=== PATIENT | male | born 1940 | race Caucasian/White ===

== ENCOUNTER 2016-11-28 16:26 | Inpatient (IN) | payer MEDICARE ==
[2016-11-28 17:36] LABS: Hematocrit 42 % (42-52); Hemoglobin 13.9 g/dl (14.0-18.0); Mean Corpuscular HGB Conc 33 g/dl (31-36); Mean Corpuscular Hemoglobin 32 pg (27-31); Mean Corpuscular Volume 98 fL (80-94); Mean Platelet Volume 8 um3 (7.4-10.4); Red Blood Count 4.33 10^6/ul (4.0-5.4); Red Cell Distribution Width 15 % (10.5-15); White Blood Count 10.6 10^3/ul (3.5-10.8)
[2016-11-28 17:50] LABS: Ammonia 37 mol/L (16-53)
[2016-11-28 17:52] LABS: ALT 15 U/L (7-52); AST 24 U/L (13-39); Albumin 3.9 g/dL (3.2-5.2); Alkaline Phosphatase 81 U/L (34-104); Anion Gap 5 mmol/L (2-11); BUN/Creatinine Ratio 26.9 (8-20); Blood Urea Nitrogen 25 mg/dL (6-24); C Reactive Protein 17.56 mg/L (< 5.00); CO2 Carbon Dioxide 27 mmol/L (22-32); Calcium 9.9 mg/dL (8.6-10.3); Chloride 105 mmol/L (101-111); Creatine Kinase 202 U/L (10-223); EGFR African American 101.9 (>60); EGFR Non-African American 79.2 (>60); Globulin 3.9 g/dL (2-4); Glucose 111 mg/dL (70-100); Lipase 26 U/L (11.0-82.0); Magnesium 2.1 mg/dL (1.9-2.7); Potassium 4.6 mmol/L (3.5-5.0); Sodium 137 mmol/L (133-145); Total Protein 7.8 g/dL (6.4-8.9)
[2016-11-28 17:55] LABS: B Type Natriuretic Peptide 606 pg/mL
[2016-11-28 17:57] LABS: Troponin I 0.45 ng/mL (<0.04)
[2016-11-28] MEDS ORDERED: Aspirin Low Dose CHEW TAB* 81 MG PO ONE (17:59)
[2016-11-28] MEDS ORDERED: LORazepam INJ* 2 MG/ML 1 ML VIAL IV ONE (17:59)
[2016-11-28] MEDS ORDERED: NS 0.9% 1000 ML* 1,000 ML IV SCH (18:00)
[2016-11-28 18:18] LABS: Urine Bacteria Absent (Absent); Urine Bilirubin Negative (Negative); Urine Glucose Negative (Negative); Urine Nitrite Negative (Negative)
[2016-11-28 18:27] LABS: Acetaminophen < 15 mcg/mL; Alcohol < 10 mg/dL (<10)
[2016-11-28 18:32] LABS: Benzodiazepine Urine Screen None Detected (None Detect)
[2016-11-28 18:38] LABS: TSH (Thyroid Stimulating Horm) 5.02 mcIU/mL (0.34-5.60)
[2016-11-28] MEDS ORDERED: Iohexol 350* (CONTRAST) 500 ML MDV IV ONE (19:20)
[2016-11-28] MEDS ORDERED: Ondansetron INJ* 2 MG/ML VIAL IV PRN (19:48)
[2016-11-28] MEDS ORDERED: Acetaminophen TAB* 325 MG PO PRN (19:48)
--- NOTE | 2016-11-28 20:25 | RAD ---
INDICATION: Altered mental status COMPARISON: None. TECHNIQUE: Contiguous axial sections of the brain were obtained from the skull base to the vertex without contrast. FINDINGS: The ventricles, cisterns and sulci are within normal limits. The richmond-white matter differentiation is adequately maintained and there is no sulcal effacement. No significant focal abnormality or mass effect is present. There is no evidence for intracranial hemorrhage. No significant focal osseous abnormality is present. The visualized portion of the paranasal sinuses and mastoid air cells appear clear. IMPRESSION: Normal CT of the brain.
--- NOTE | 2016-11-28 20:37 | RAD ---
INDICATION: Elevated troponin and d-dimer in a patient exhibiting altered mental status COMPARISON: None TECHNIQUE: Axial source images were acquired following the administration of 61 mL on the patent [address] angiographic technique. Coronal and sagittal reconstructed images were constructed and reviewed. FINDINGS: There there are no filling defects in the pulmonary arteries to indicate acute pulmonary embolic disease. Lateral aspect of the right lower lobe there is a partially calcified 5 mm nodule most consistent with a benign granuloma. The lungs exhibit diffuse centrilobular emphysematous changes and hyperinflation. There are scattered foci of pleural-based density not exceeding a centimeter in greatest dimension. The heart is normal in size. There is no evidence of pericardial effusion. There is no evidence of aortic aneurysm or dissection. The right mainstem pulmonary artery measures 3 cm in diameter, a top normal dimension that can be seen in the setting of pulmonary hypertension. There is no mediastinal, hilar, or axillary lymphadenopathy. Multilevel degenerative change of the thoracic spine includes loss of intervertebral disc height. There is an age indeterminant compression deformity of the T8 vertebral body. Plate and screw fixator is partially visualized overlying the C6 vertebral body. Limited views of the upper abdomen show no acute abnormalities. There is a subcentimeter fluid density cyst in the left lobe of the liver. The aorta exhibits calcified atherosclerosis. IMPRESSION: 1. No CT of evidence of pulmonary embolism. 2. Imaging findings are consistent with emphysema. 3. There is an age indeterminant compression deformity of the T8 vertebral body. 4. Additional chronic, degenerative and iatrogenic findings described in the body the report.
[2016-11-28] MEDS ORDERED: Nicotine Patch Removal NOTE FOLLOW UP SCH (21:00)
[2016-11-28] MEDS ORDERED: clonazePAM TAB(*) 0.5 MG PO SCH (21:00)
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
[2016-11-28 21:18] LABS: Erythrocyte Sed Rate 49 mm/Hr (0-40)
[2016-11-28] MEDS: Heparin VIAL(*) 5000 UNITS/ML VIAL (FIVE THOUSAND) SUBCUT SCH (22:15)
[2016-11-28] MEDS: QUEtiapine TAB* 25 MG PO SCH (22:15)
[2016-11-28] MEDS: ceFAZolin 2 GM PREMIX(*) 2 GM/50 ML BAG IVPB SCH (22:17)
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
[2016-11-29 05:05] LABS: Hematocrit 35 % (42-52); Hemoglobin 11.4 g/dl (14.0-18.0); Mean Corpuscular HGB Conc 33 g/dl (31-36); Mean Corpuscular Hemoglobin 32 pg (27-31); Mean Corpuscular Volume 97 fL (80-94); Mean Platelet Volume 8 um3 (7.4-10.4); Red Cell Distribution Width 15 % (10.5-15); White Blood Count 8.7 10^3/ul (3.5-10.8)
[2016-11-29 05:16] LABS: BUN/Creatinine Ratio 31.6 (8-20); Calcium 8.6 mg/dL (8.6-10.3); EGFR African American 128.6 (>60); Potassium 4.1 mmol/L (3.5-5.0)
[2016-11-29] MEDS: Heparin VIAL(*) 5000 UNITS/ML VIAL (FIVE THOUSAND) SUBCUT SCH ×3 (06:17→22:31)
[2016-11-29] MEDS: ceFAZolin 2 GM PREMIX(*) 2 GM/50 ML BAG IVPB SCH ×2 (06:17→13:53)
[2016-11-29] MEDS ORDERED: Nicotine PATCH 21 MG/24 HR* PATCH TRANSDERM SCH (08:00)
[2016-11-29] MEDS: Donepezil TAB* 5 MG PO SCH (08:32)
[2016-11-29] MEDS: Sertraline* 100 MG TAB PO SCH (08:32)
[2016-11-29] MEDS: Aspirin Low Dose CHEW TAB* 81 MG PO SCH (08:32)
--- NOTE | 2016-11-29 10:12 | ECHO ---
Patient: JUSTINE OLVERA [facility] Rec#: [id number] : 1940 Date: 11/29/2016 Age: 76y Height: 187.96 cm / 74.0 in Weight: 64.41 kg / 142.0 lbs Sex: M BSA: 1.88 Room#: 438 Admit Date#: 11/28/2016 Type: Inpatient Referring: Tien Ho NP Reading: Barbie Damon MD Monitor Technician: Janneth Newton RD Transthoracic Echocardiogram Indication: Abnormal EKG, AMS BP: 121/63 HR: 56 Rhythm: Bradycardia Indications Abnormal Electrocardiogram Findings History: Bladder cancer, smoker, anxiety/depression. Technical Comments: The study quality is fair. The study is technically limited due to patient body habitus. Completed at 0845. Left Ventricle: The left ventricular chamber size is normal. Mild concentric left ventricular hypertrophy is observed. There is a prominent septal knuckle. There is normal left ventricular systolic function. The estimated ejection fraction is 55-60%. There is a left ventricular septal wall motion abnormality observed, possibly due to the presence of a right bundle branch block. There is no consistent Doppler evidence of clinically significant diastolic dysfunction. Left Atrium: The left atrium is moderately dilated. Right Ventricle: The right ventricle is mildly dilated. The right ventricular global systolic function is normal. Right Atrium: The right atrium is moderate to severely dilated. A prominent chiari network is noted in the right atrium. Aortic Valve: The aortic valve is trileaflet. The aortic valve leaflets are mildly thickened. There is a trace of aortic regurgitation. There is no evidence of aortic stenosis. Mitral Valve: The mitral valve leaflets are mildly thickened. There is mild mitral regurgitation. There is no evidence of mitral stenosis. Tricuspid Valve: The tricuspid valve leaflets are normal. There is moderate tricuspid regurgitation. The right ventricular systolic pressure is estimated at 46 mmHg. There is evidence of moderate pulmonary hypertension. There is no tricuspid stenosis. Pulmonic Valve: The pulmonic valve appears thickened with good excursion. There is a trace pulmonic regurgitation. There is no pulmonic stenosis. Pericardium: There is no significant pericardial effusion. Aorta: The ascending aorta is not well visualized. The aortic arch is not well visualized. There is mild dilatation of the aortic root. Pulmonary Artery: The main pulmonary artery appears normal. Venous: The inferior vena cava is dilated. There is a greater than 50% respiratory change in the inferior vena cava dimension. Summary: There was not any prior study for comparison. Conclusions The left ventricular chamber size is normal. Mild concentric left ventricular hypertrophy is observed. The estimated ejection fraction is 55-60%. There is relative questionable hypokinesis of the inferior wall. There is normal left ventricular systolic function. There is a left ventricular septal wall motion abnormality observed, possibly due to the presence of a right bundle branch block. The left atrium is moderately dilated. There is a trace of aortic regurgitation. There is mild mitral regurgitation. There is moderate tricuspid regurgitation. There is evidence of moderate pulmonary hypertension. There is a trace pulmonic regurgitation. There is mild dilatation of the aortic root. Measurements Name Value Normal Range RVIDd (AP) 2D 3.6 cm (0.9 - 2.6) RVDdMajor (2D) 4 cm (2.2 - 4.4) RAd ISD 4CH 4.3 cm (3.4 - 4.9) RA (A4C)W 5.1 cm (2.9 - 4.6) IVSd (2D) 1.2 cm (0.6 - 1) LVPWd (2D) 1.2 cm (0.6 - 1) LVIDd (2D) 3.8 cm (3.6 - 5.4) LVIDs (2D) 2.8 cm - LV FS (2D) 27 % (25 - 45) Aortic Annulus 2.3 cm (1.4 - 2.6) Ao root diameter (2D) 3.6 cm (2.1 - 3.5) LA dimension (AP) 2D 3.4 cm (2.3 - 3.8) LAd ISD 4CH 4 cm (2.9 - 5.3) LA ISD 4CH W 4.6 cm (2.5 - 4.5) Name Value Normal Range LA ESV SP 4CH (A/L) 62 ml - LA ESV SP 2CH (A/L) 80 ml - LA ESV BP (A/L) 82 ml - LA ESV BP (A/L) index 43.66 ml/m2 - LA ESV SP 4CH (MOD) 51 ml - LA ESV SP 2CH (MOD) 71 ml - Name Value Normal Range MV E-wave Vmax 0.91 m/sec - MV deceleration time 285.6 msec - MV A-wave Vmax 0.59 m/sec - MV E:A ratio 1.5 ratio - LV septal e' Vmax 0.07 m/sec - LV lateral e' Vmax 0.05 m/sec - LV E:e' septal ratio 12.86 ratio - LV E:e' lateral ratio 18.2 ratio - Name Value Normal Range AV Vmax 1.67 m/sec - AV VTI 35.19 cm - AV peak gradient 11.19 mmHg - AV mean gradient 5.36 mmHg - LVOT Vmax 1.56 m/sec - LVOT VTI 28.92 cm - LVOT peak gradient 9.83 mmHg - LVOT mean gradient 3.62 mmHg - Name Value Normal Range TR Vmax 2.8 m/sec - TR peak gradient 31 mmHg - RAP 15 mmHg - RVSP 46 mmHg - IVC diameter 2.2 cm - Name Value Normal Range PV Vmax 1.3 m/sec - PV peak gradient 6.76 mmHg -
[2016-11-29] MEDS: Nicotine GUM* 2 MG PO PRN ×2 (13:21→17:35)
--- NOTE | 2016-11-29 14:24 | PN ---
Subjective Date of Service: 11/29/16 Interval History: Patient seen this morning. Denies chest pain. Concerned about his LE wound and that it hasn't been cleaned enough times today. Asking me if I would like him to peel off a scab from his arm so we can send it to the lab. Despite multiple repeated questioning, could not get a direct answer about how he ended up in the hospital. Speech tangential, needs frequent redirection. Family History: Unchanged from Admission Social History: Unchanged from Admission Past Medical History: Unchanged from Admission Objective Active Medications: Acetaminophen (Tylenol Tab*) 650 mg PO Q4H PRN Aspirin (Aspirin Low Dose Tab*) 81 mg PO DAILY [facility]WASI Donepezil HCl (Aricept Tab*) 10 mg PO DAILY KWSAI Heparin Sodium (Porcine) (Heparin Vial(*)) 5,000 units SUBCUT Q8HR KWASI Cefazolin Sodium/Dextrose (Kefzol Premix(*)) 2 gm in 50 mls @ 100 mls/hr IVPB Q8H [facility] Nicotine Polacrilex (Nicotine Gum*) 2 mg PO Q2H PRN Ondansetron HCl (Zofran Inj*) 4 mg IV Q6H PRN Quetiapine Fumarate (Seroquel Tab*) 12.5 mg PO BEDTIME KWASI Sertraline HCl (Zoloft*) 100 mg PO DAILY [facility] Vital Signs 11/28/16 11/28/16 11/28/16 19:44 20:00 21:15 Temperature 98.6 F Pulse Rate 71 73 Respiratory 21 20 22 Rate Blood Pressure 134/77 123/64 (mmHg) O2 Sat by Pulse 99 100 Oximetry 11/29/16 11/29/16 11/29/16 00:34 00:49 01:00 Temperature 97.4 F Pulse Rate 74 76 Respiratory 16 Rate Blood Pressure 112/69 109/64 107/68 (mmHg) O2 Sat by Pulse 96 92 Oximetry 11/29/16 11:25 Temperature 98.3 F Pulse Rate 73 Respiratory 16 Rate Blood Pressure 143/64 (mmHg) O2 Sat by Pulse 99 Oximetry Oxygen Devices in Use Now: None Appearance: Elderly, M, laying in bed in NAD Eyes: No Scleral Icterus Ears/Nose/Mouth/Throat: Mucous Membranes Moist Neck: NL Appearance and Movements; NL JVP Respiratory: Symmetrical Chest Expansion and Respiratory Effort, Clear to Auscultation Cardiovascular: NL Sounds; No Murmurs; No JVD, RRR Abdominal: NL Sounds; No Tenderness; No Distention Lymphatic: No Cervical Adenopathy Extremities: No Edema Skin: - - RLE ulcer on medial aspect of lindsey, some fibirnous changes, no surrounding tenderness, mild erythema Neurological: Alert and Oriented x 3, - - tangential speech, disorganized thoughts Result Diagrams: 11/29/16 04:34 11/29/16 04:34 Microbiology and Other Data: Microbiology 11/29/16 00:51 Nasal Screen MRSA (PCR)(NERIS) - Final Nasal Mrsa Negative Assess/Plan/Problems-Billing Assessment: Disorganized thoughts, irrational behavior, LE wound with possible cellulitis and troponin elevation in a 76 yo M with hx of bladder cancer, dementia, depression/anxiety - Patient Problems (1) Disorganized behavior Current Visit: Yes Comment: Do not think this is delirium, does not seem to be fluctuating but rather progressing over time. Psych to evaluate the patient. Holding benzodiazepines for now. Continue qhs Seroquel. (2) Wound of lower extremity Current Visit: Yes Comment: Seems like venous stasis ulcer. Maybe some surrounding cellulitis. Will change to oral keflex. (3) Elevated troponin Current Visit: Yes Comment: Unclear etiology. Echo shows normal EF, ?relative hypokinesis of the inferior wall. Troponins trending down, no complaints of chest pain. Will hold off on additional work-up at this time as I feel the patient would not be reliable in taking medications if he needed PCI. Will continue for now with ASA 81 mg daily. Toprol 25 mg daily. (4) Depression Current Visit: Yes Comment: Continue Zoloft. Continue Aricept, unclear if patient has diagnosis of dementia. (5) DVT prophylaxis Current Visit: Yes Comment: HSQ
[2016-11-29] MEDS: Metoprolol Succinate XL TAB* 25 MG PO SCH (15:42)
[2016-11-29] MEDS ORDERED: Haloperidol INJ IV/IM* 5 MG/ML AMP IM PRN (16:05)
[2016-11-29] MEDS ORDERED: Haloperidol INJ IV/IM* 5 MG/ML AMP ONE (16:12)
[2016-11-29] MEDS: Cephalexin CAP* 250 MG PO SCH ×2 (16:15→20:54)
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
[2016-11-29] MEDS: Haloperidol TAB* 5 MG PO SCH (20:54)
[2016-11-29] MEDS: QUEtiapine TAB* 25 MG PO SCH (20:54)
[2016-11-30 05:05] LABS: Hematocrit 35 % (42-52); Hemoglobin 11.4 g/dl (14.0-18.0); Mean Corpuscular HGB Conc 33 g/dl (31-36); Mean Corpuscular Hemoglobin 32 pg (27-31); Mean Corpuscular Volume 97 fL (80-94); Mean Platelet Volume 8 um3 (7.4-10.4); Red Blood Count 3.56 10^6/ul (4.0-5.4); Red Cell Distribution Width 14 % (10.5-15); White Blood Count 8.7 10^3/ul (3.5-10.8)
[2016-11-30] MEDS: Heparin VIAL(*) 5000 UNITS/ML VIAL (FIVE THOUSAND) SUBCUT SCH ×3 (05:36→21:19)
[2016-11-30] MEDS: Donepezil TAB* 5 MG PO SCH (09:13)
[2016-11-30] MEDS: Haloperidol TAB* 5 MG PO SCH ×2 (09:13→21:17)
[2016-11-30] MEDS: Metoprolol Succinate XL TAB* 25 MG PO SCH (09:13)
[2016-11-30] MEDS: Cephalexin CAP* 250 MG PO SCH ×4 (09:13→21:16)
[2016-11-30] MEDS: Sertraline* 100 MG TAB PO SCH (09:14)
[2016-11-30] MEDS: Aspirin Low Dose CHEW TAB* 81 MG PO SCH (09:14)
[2016-11-30 12:50] LABS: Folate 10.63 ng/mL (>3.99)
[2016-11-30 13:26] LABS: Syphilis Index < 0.1 Index
--- NOTE | 2016-11-30 13:57 | PN ---
Subjective Date of Service: 11/30/16 Interval History: Patient seen this afternoon. Much more calm today, still feels that his son caused him to be hospitalized and not the fact that he threatened his neighbor. Does not feel he has any problems at home and can manage things on his own. Did well on MMSE, Family History: Unchanged from Admission Social History: Unchanged from Admission Past Medical History: Unchanged from Admission Objective Active Medications: Acetaminophen (Tylenol Tab*) 650 mg PO Q4H PRN Aspirin (Aspirin Low Dose Tab*) 81 mg PO DAILY [facility] Cephalexin HCl (Keflex Cap*) 250 mg PO QID [facility] Donepezil HCl (Aricept Tab*) 10 mg PO DAILY [facility] Haloperidol (Haldol Tab*) 2.5 mg PO BID [facility] Haloperidol Lactate (Haldol Inj Iv/Im*) 5 mg IM Q4H PRN Heparin Sodium (Porcine) (Heparin Vial(*)) 5,000 units SUBCUT Q8HR [facility] Metoprolol Succinate (Toprol Xl Tab*) 25 mg PO DAILY [facility] Nicotine Polacrilex (Nicotine Gum*) 2 mg PO Q2H PRN Ondansetron HCl (Zofran Inj*) 4 mg IV Q6H PRN Quetiapine Fumarate (Seroquel Tab*) 12.5 mg PO BEDTIME [facility] Sertraline HCl (Zoloft*) 100 mg PO DAILY [facility] Vital Signs 11/29/16 11/29/16 11/29/16 15:16 19:15 20:00 Temperature 97.3 F 98.3 F Pulse Rate 79 91 Respiratory 26 16 16 Rate Blood Pressure 151/63 118/42 (mmHg) O2 Sat by Pulse 99 97 Oximetry 11/29/16 11/30/16 11/30/16 23:06 07:50 08:48 Temperature 98.4 F 98.3 F Pulse Rate 46 49 Respiratory 18 18 16 Rate Blood Pressure 126/54 122/51 (mmHg) O2 Sat by Pulse 99 98 Oximetry Oxygen Devices in Use Now: None Appearance: Elderly, M, laying in bed in NAD Eyes: No Scleral Icterus Ears/Nose/Mouth/Throat: Mucous Membranes Moist Neck: NL Appearance and Movements; NL JVP Respiratory: Symmetrical Chest Expansion and Respiratory Effort, Clear to Auscultation Cardiovascular: NL Sounds; No Murmurs; No JVD, RRR Abdominal: NL Sounds; No Tenderness; No Distention Lymphatic: No Cervical Adenopathy Extremities: No Edema Skin: - - RLE with shallow ulceration, clean and dry Neurological: - - Alert, oriented to self, place, year, month, date wrong, no focal deficits Result Diagrams: 11/30/16 04:37 11/29/16 04:34 Assess/Plan/Problems-Billing Assessment: Disorganized thoughts, irrational behavior, LE wound with possible cellulitis and troponin elevation in a 76 yo M with hx of bladder cancer, dementia, depression/anxiety - Patient Problems (1) Disorganized behavior Current Visit: Yes Comment: Seems to be improved today. Appreciate Psych assistance. For the time being continue BID Haldol and qhs Seroquel. (2) Wound of lower extremity Current Visit: Yes Comment: Seems like venous stasis ulcer. Maybe some surrounding cellulitis. Continue oral keflex. (3) Elevated troponin Current Visit: Yes Comment: Unclear etiology. Echo shows normal EF, ?relative hypokinesis of the inferior wall. Troponins trending down, no complaints of chest pain. Will hold off on additional work-up at this time as I feel the patient would not be reliable in taking medications if he needed PCI. Will continue for now with ASA 81 mg daily. Toprol 25 mg daily, some bradycardia recorded, will keep an eye on that today. (4) Depression Current Visit: Yes Comment: Continue Zoloft. Continue Aricept. As per son, not clear if patient was definitively diagnosed with dementia but may have just been suspected. Performed well (27/30) on MMSE here in the hospital. (5) DVT prophylaxis Current Visit: Yes Comment: HSQ Status and Disposition: Dispo unclear at this time, seems a lot better today, will order PT/OT and discuss with psych
[2016-11-30] MEDS: Nicotine GUM* 2 MG PO PRN (14:34)
--- NOTE | 2016-11-30 16:41 | CONSULT ---
Identification - Patient Identification Reason for Psychiatric Consultation: Homicidal Ideation -: Patient is a 76 year old, M admitted on 11/28/16. - MHU Identification Employment Status: Disabled Hx Psychiatric Hospitalization: No History - Objective HPI: Fernando is seen at the bedside today for follow up and is still under one:one observations for his safety. He denies HI today, describing the situation with his neighbor, which led to this admission, as a "misunderstanding." He does not believe that he needs subacute rehab or any SNF services. "I'm fine going home and sleeping in my own bed." He minimizes the safety issues brought up by his son, Geronimo, and the primary team, seeming to have no insight into the functional declines he has recently undergone. On exam he continues to demonstrate deficits in orientation to time and situation, poor recall and impaired attention. He denies SI or HI. Lab Results: Laboratory Tests 11/28/16 11/28/16 11/28/16 20:52 20:52 23:35 WBC RBC Hgb Hct MCV MCH MCHC RDW Plt Count MPV Neut % (Auto) Lymph % (Auto) Mason % (Auto) Eos % (Auto) Baso % (Auto) Absolute Neuts (auto) Absolute Lymphs (auto) Absolute Monos (auto) Absolute Eos (auto) Absolute Basos (auto) Absolute Nucleated RBC Nucleated RBC % Carbon Monoxide Screen <3.5 Sodium Potassium Chloride Carbon Dioxide Anion Gap BUN Creatinine Est GFR ( Amer) Est GFR (Non-Af Amer) BUN/Creatinine Ratio Glucose Calcium Troponin I 0.37 H* 0.31 H* Vitamin B12 Folate Syphilis IgG Antibody 11/29/16 11/29/16 11/30/16 04:34 04:34 04:37 WBC 8.7 8.7 RBC 3.60 L 3.56 L Hgb 11.4 L 11.4 L Hct 35 L 35 L MCV 97 H 97 H MCH 32 H 32 H MCHC 33 33 RDW 15 14 Plt Count 226 212 MPV 8 8 Neut % (Auto) 63.4 72.3 Lymph % (Auto) 25.2 17.8 L Mason % (Auto) 10.5 H 9.1 H Eos % (Auto) 0.5 0.3 Baso % (Auto) 0.4 0.5 Absolute Neuts (auto) 5.5 6.3 Absolute Lymphs (auto) 2.2 1.6 Absolute Monos (auto) 0.9 H 0.8 Absolute Eos (auto) 0 0 Absolute Basos (auto) 0 0 Absolute Nucleated RBC 0 0 Nucleated RBC % 0 0 Carbon Monoxide Screen Sodium 136 Potassium 4.1 Chloride 107 Carbon Dioxide 25 Anion Gap 4 BUN 24 Creatinine 0.76 Est GFR ( Amer) 128.6 Est GFR (Non-Af Amer) 100.0 BUN/Creatinine Ratio 31.6 H Glucose 78 Calcium 8.6 Troponin I Vitamin B12 Folate Syphilis IgG Antibody 11/30/16 11/30/16 04:37 04:37 WBC RBC Hgb Hct MCV MCH MCHC RDW Plt Count MPV Neut % (Auto) Lymph % (Auto) Mason % (Auto) Eos % (Auto) Baso % (Auto) Absolute Neuts (auto) Absolute Lymphs (auto) Absolute Monos (auto) Absolute Eos (auto) Absolute Basos (auto) Absolute Nucleated RBC Nucleated RBC % Carbon Monoxide Screen Sodium Potassium Chloride Carbon Dioxide Anion Gap BUN Creatinine Est GFR ( Amer) Est GFR (Non-Af Amer) BUN/Creatinine Ratio Glucose Calcium Troponin I Vitamin B12 272 Folate 10.63 Syphilis IgG Antibody Nonreactive Exam Appearance: Thin Framed Hygiene: Normal Grooming: Fairly Well Kept Psychomotor Activities: Normal Exhibits Abnormal Movement: No Attitude and Relatedness: Cooperative Eye Contact: Fair - Speech Quality: Unpressured Latencies: Normal Quantity: Appropriate Patient's Decription of Mood: "Fine" Observed Affect: Fair Affect Consistent with: Euthymia Patient's Thought Process: Circumstantial Thought Content: Yes Paranoid Ideation, No Passive Wish, No Suicidal Planning, No Homicidal Ideation Experiencing Hallucinations: No, Sensorium is Clear Type of Hallucinations: Visual: No, Auditory: No, Command: No Level of Consciousness: Alert Orientation: Yes Orientated to Time, Yes Orientated to Person, No Intact, No Orientated to Place Impulse Control: Poor Insight and Judgement: Impaired Impression - Impression Clinical Impression: 76 y.o. , white male with a fairly recent diagnosis of dementia admitted to medicine due to recent disorganized, unsafe behavior, homicidality towards his neighbor and elevated troponins. It is my opinion that he does not currently have the capacity to make informed medical decisions. Merits Inpatient Hospitalization: No Plan - Treatment Plan Treatment Plan: The patient lacks capacity to make informed medical decisions and primary team should continue to work with his family on discharge planning considerations. His acute delirium appears to be improving with low dose haloperidol and this should be discontinued prior to discharge. Will increase quetiapine to 50mg PO qhs. Psychiatry will continue to follow. Continued Medication Management: Start Medication Medications: Current Medications Acetaminophen (Tylenol Tab*) 650 mg PO Q4H PRN PRN Reason: FEVER/PAIN Aspirin (Aspirin Low Dose Tab*) 81 mg PO DAILY [facility] Last Admin: 11/30/16 09:14 Dose: 81 mg Cephalexin HCl (Keflex Cap*) 250 mg PO QID [facility] Last Admin: 11/30/16 13:02 Dose: 250 mg Donepezil HCl (Aricept Tab*) 10 mg PO DAILY [facility] Last Admin: 11/30/16 09:13 Dose: 10 mg Haloperidol (Haldol Tab*) 2.5 mg PO BID [facility] Last Admin: 11/30/16 09:13 Dose: 2.5 mg Haloperidol Lactate (Haldol Inj Iv/Im*) 5 mg IM Q4H PRN PRN Reason: AGITATION Last Admin: 11/29/16 16:40 Dose: 5 mg Heparin Sodium (Porcine) (Heparin Vial(*)) 5,000 units SUBCUT Q8HR [facility] Last Admin: 11/30/16 14:33 Dose: 5,000 units Metoprolol Succinate (Toprol Xl Tab*) 25 mg PO DAILY [facility] Last Admin: 11/30/16 09:13 Dose: 25 mg Nicotine Polacrilex (Nicotine Gum*) 2 mg PO Q2H PRN PRN Reason: CRAVING Last Admin: 11/30/16 14:34 Dose: 2 mg Ondansetron HCl (Zofran Inj*) 4 mg IV Q6H PRN PRN Reason: NAUSEA Quetiapine Fumarate (Seroquel Tab*) 12.5 mg PO BEDTIME [facility] Last Admin: 11/29/16 20:54 Dose: 12.5 mg Sertraline HCl (Zoloft*) 100 mg PO DAILY [facility] Last Admin: 11/30/16 09:14 Dose: 100 mg - Discharge Plan Discharge Plan: Outpatient Follow Up
[2016-11-30] MEDS: QUEtiapine TAB* 25 MG PO SCH (21:18)
[2016-12-01] MEDS: Heparin VIAL(*) 5000 UNITS/ML VIAL (FIVE THOUSAND) SUBCUT SCH ×3 (05:53→21:21)
[2016-12-01] MEDS: Cephalexin CAP* 250 MG PO SCH (08:50)
[2016-12-01] MEDS: Donepezil TAB* 5 MG PO SCH (08:51)
[2016-12-01] MEDS: Haloperidol TAB* 5 MG PO SCH (08:52)
[2016-12-01] MEDS: Sertraline* 100 MG TAB PO SCH (08:52)
[2016-12-01] MEDS: Aspirin Low Dose CHEW TAB* 81 MG PO SCH (08:53)
[2016-12-01] MEDS: Metoprolol Succinate XL TAB* 25 MG PO SCH (08:53)
[2016-12-01] MEDS ORDERED: Haloperidol TAB* 5 MG PO PRN (12:27)
--- NOTE | 2016-12-01 12:29 | PN ---
Subjective Date of Service: 12/01/16 Interval History: Patient seen this morning with son present. Seems more withdrawn and slow to respond today. Perseverating on wanting to pick his scabs off, also would like to restart his home Flagyl. Good interaction with son this morning. Explained to the patient that I do not feel that he is safe at home at this point and that we will need to look into other options. He brought up the idea of staying with his son which his son would consider depending on the daytime help he could arrange as he works time clock inspector. Family History: Unchanged from Admission Social History: Unchanged from Admission Past Medical History: Unchanged from Admission Objective Active Medications: Acetaminophen (Tylenol Tab*) 650 mg PO Q4H PRN Aspirin (Aspirin Low Dose Tab*) 81 mg PO DAILY [facility] Donepezil HCl (Aricept Tab*) 10 mg PO DAILY [facility] Haloperidol (Haldol Tab*) 2.5 mg PO BID [facility] Haloperidol Lactate (Haldol Inj Iv/Im*) 5 mg IM Q4H PRN Heparin Sodium (Porcine) (Heparin Vial(*)) 5,000 units SUBCUT Q8HR [facility] Metoprolol Succinate (Toprol Xl Tab*) 25 mg PO DAILY [facility] Metronidazole (Flagyl Tab*) 500 mg PO BID [facility] Nicotine Polacrilex (Nicotine Gum*) 2 mg PO Q2H PRN Ondansetron HCl (Zofran Inj*) 4 mg IV Q6H PRN Quetiapine Fumarate (Seroquel Tab*) 50 mg PO BEDTIME [facility] Sertraline HCl (Zoloft*) 100 mg PO DAILY [facility] Vital Signs 11/30/16 11/30/16 11/30/16 15:12 20:00 23:15 Temperature 97.7 F 98.3 F Pulse Rate 53 47 Respiratory 22 18 16 Rate Blood Pressure 141/68 119/46 (mmHg) O2 Sat by Pulse 97 97 Oximetry 12/01/16 12/01/16 07:26 07:35 Temperature 97.7 F Pulse Rate 66 Respiratory 16 18 Rate Blood Pressure 145/67 (mmHg) O2 Sat by Pulse 98 Oximetry Oxygen Devices in Use Now: None Appearance: Elderly, M, laying in bed in NAD Eyes: No Scleral Icterus Ears/Nose/Mouth/Throat: Mucous Membranes Moist Neck: NL Appearance and Movements; NL JVP Respiratory: Symmetrical Chest Expansion and Respiratory Effort, Clear to Auscultation Cardiovascular: NL Sounds; No Murmurs; No JVD, RRR Abdominal: NL Sounds; No Tenderness; No Distention Lymphatic: No Cervical Adenopathy Extremities: No Edema Skin: - - RLE wrapped Neurological: - - Alert, slow to respond today, still with some paranoid thoughts Result Diagrams: 11/30/16 04:37 11/29/16 04:34 Assess/Plan/Problems-Billing Assessment: Disorganized thoughts, irrational behavior, LE wound with possible cellulitis and troponin elevation in a 76 yo M with hx of bladder cancer, dementia, depression/anxiety - Patient Problems (1) Disorganized behavior Current Visit: Yes Comment: Seems to be improved. Appreciate Psych assistance. Continue QHS seroquel. Will make Haldol prn as patient seems to be a bit more sedated today. (2) Wound of lower extremity Current Visit: Yes Comment: Seems like venous stasis ulcer. Maybe had some surrounding cellulitis, will stop Keflex. Wound care. (3) Elevated troponin Current Visit: Yes Comment: Unclear etiology. Echo shows normal EF, ?relative hypokinesis of the inferior wall. Troponins trending down, no complaints of chest pain. Will hold off on additional work-up at this time as I feel the patient would not be reliable in taking medications if he needed PCI. Will continue for now with ASA 81 mg daily. Will decrease Toprol to 12.5 mg daily (4) Depression Current Visit: Yes Comment: Continue Zoloft. Continue Aricept. As per son, not clear if patient was definitively diagnosed with dementia but may have just been suspected. Performed well (27/30) on MMSE here in the hospital. (5) Hidradenitis suppurativa Current Visit: Yes Comment: Will resume home Flagyl and Dapsone. (6) DVT prophylaxis Current Visit: Yes Comment: HSQ Status and Disposition: Will need placement vs potentially staying with son, will be here through the weekend
[2016-12-01] MEDS: metroNIDAZOLE TAB* 250 MG PO SCH ×2 (13:40→21:19)
[2016-12-01] MEDS: Dapsone TAB* 100 MG PO SCH (13:41)
[2016-12-01] MEDS: Nicotine GUM* 2 MG PO PRN ×2 (15:49→18:06)
[2016-12-01] MEDS: QUEtiapine TAB* 25 MG PO SCH (21:20)
[2016-12-02] MEDS: Heparin VIAL(*) 5000 UNITS/ML VIAL (FIVE THOUSAND) SUBCUT SCH ×3 (05:35→20:36)
[2016-12-02] MEDS: Sertraline* 100 MG TAB PO SCH (09:29)
[2016-12-02] MEDS: Dapsone TAB* 100 MG PO SCH (09:29)
[2016-12-02] MEDS: Donepezil TAB* 5 MG PO SCH (09:29)
[2016-12-02] MEDS: Metoprolol Succinate XL TAB* 25 MG PO SCH (09:29)
[2016-12-02] MEDS: Aspirin Low Dose CHEW TAB* 81 MG PO SCH (09:29)
[2016-12-02] MEDS: metroNIDAZOLE TAB* 250 MG PO SCH ×2 (09:29→20:31)
[2016-12-02] MEDS: Nicotine GUM* 2 MG PO PRN (09:58)
--- NOTE | 2016-12-02 12:13 | PN ---
Subjective Date of Service: 12/02/16 Interval History: Patient seen this morning. As per nursing was more agitated this morning but they did not administer haldol. When speaking with me he is upset that he has not been receiving his Dapsone, Flagyl and Klonopin. I explained that his ABx had been restarted yesterday and he is receiving them and I told him I am intentionally not giving Klonopin at this time. He says the only reason he is here is because of anxiety and he needs his Klonopin. I explained he is receiving some additional medications that can help anxiety and we will be holding Klonopin. Family History: Unchanged from Admission Social History: Unchanged from Admission Past Medical History: Unchanged from Admission Objective Active Medications: Acetaminophen (Tylenol Tab*) 650 mg PO Q4H PRN PRN Reason: FEVER/PAIN Aspirin (Aspirin Low Dose Tab*) 81 mg PO DAILY [facility] Last Admin: 12/02/16 09:29 Dose: 81 mg Dapsone (Dapsone Tab*) 100 mg PO DAILY [facility] Last Admin: 12/02/16 09:29 Dose: 100 mg Donepezil HCl (Aricept Tab*) 10 mg PO DAILY [facility] Last Admin: 12/02/16 09:29 Dose: 10 mg Haloperidol (Haldol Tab*) 2.5 mg PO BID PRN PRN Reason: AGITATION Haloperidol Lactate (Haldol Inj Iv/Im*) 5 mg IM Q4H PRN PRN Reason: AGITATION Last Admin: 11/29/16 16:40 Dose: 5 mg Heparin Sodium (Porcine) (Heparin Vial(*)) 5,000 units SUBCUT Q8HR [facility] Last Admin: 12/02/16 05:35 Dose: 5,000 units Metoprolol Succinate (Toprol Xl Tab*) 12.5 mg PO DAILY [facility] Last Admin: 12/02/16 09:29 Dose: 12.5 mg Metronidazole (Flagyl Tab*) 500 mg PO BID [facility] Last Admin: 12/02/16 09:29 Dose: 500 mg Nicotine Polacrilex (Nicotine Gum*) 2 mg PO Q2H PRN PRN Reason: CRAVING Last Admin: 12/02/16 09:58 Dose: 2 mg Ondansetron HCl (Zofran Inj*) 4 mg IV Q6H PRN PRN Reason: NAUSEA Quetiapine Fumarate (Seroquel Tab*) 50 mg PO BEDTIME [facility] Last Admin: 12/01/16 21:20 Dose: 50 mg Sertraline HCl (Zoloft*) 100 mg PO DAILY [facility] Last Admin: 12/02/16 09:29 Dose: 100 mg Vital Signs 12/01/16 12/01/16 12/01/16 15:27 19:58 20:00 Temperature 98.4 F 98.3 F Pulse Rate 45 68 Respiratory 18 18 18 Rate Blood Pressure 140/53 111/54 (mmHg) O2 Sat by Pulse 98 97 Oximetry 12/02/16 12/02/16 12/02/16 00:12 08:00 08:25 Temperature 98.7 F 99.1 F Pulse Rate 52 62 Respiratory 20 18 16 Rate Blood Pressure 137/45 116/54 (mmHg) O2 Sat by Pulse 96 98 Oximetry Oxygen Devices in Use Now: None Appearance: Elderly, M, laying in bed in NAD Eyes: No Scleral Icterus Ears/Nose/Mouth/Throat: Mucous Membranes Moist Respiratory: Symmetrical Chest Expansion and Respiratory Effort, Clear to Auscultation Cardiovascular: NL Sounds; No Murmurs; No JVD, RRR Abdominal: NL Sounds; No Tenderness; No Distention Skin: - - RLE wound dressed, c/d/i Neurological: - - Alert, oriented, no focal deficits Result Diagrams: 11/30/16 04:37 11/29/16 04:34 Assess/Plan/Problems-Billing Assessment: Disorganized thoughts, irrational behavior, LE wound with possible cellulitis and troponin elevation in a 76 yo M with hx of bladder cancer, dementia, depression/anxiety - Patient Problems (1) Disorganized behavior Current Visit: Yes Comment: Seems to be improved. Appreciate Psych assistance. Continue QHS seroquel and prn Haldol, if agitation persists can schedule again (2) Wound of lower extremity Current Visit: Yes Comment: Seems like venous stasis ulcer. Maybe had some surrounding cellulitis, will stop Keflex. Wound care. (3) Elevated troponin Current Visit: Yes Comment: Unclear etiology. Echo shows normal EF, ?relative hypokinesis of the inferior wall. Troponins trended down from admission, no complaints of chest pain. Will hold off on additional work-up at this time as I feel the patient would not be reliable in taking medications if he needed PCI. Will continue for now with ASA 81 mg daily. Continue Toprol 12.5 mg daily (4) Depression Current Visit: Yes Comment: Continue Zoloft. Continue Aricept. As per son, not clear if patient was definitively diagnosed with dementia but may have just been suspected. Performed well () on MMSE here in the hospital. (5) Hidradenitis suppurativa Current Visit: Yes Comment: Continue home Flagyl and Dapsone. (6) DVT prophylaxis Current Visit: Yes Comment: HSQ Status and Disposition: Will need placement vs potentially staying with son, will be here through the weekend
[2016-12-02] MEDS: QUEtiapine TAB* 25 MG PO SCH (20:23)
[2016-12-03] MEDS ORDERED: Ibuprofen TAB* 200 MG ONE (04:25)
[2016-12-03] MEDS: Ibuprofen TAB* 200 MG PO PRN (04:26)
[2016-12-03] MEDS: Heparin VIAL(*) 5000 UNITS/ML VIAL (FIVE THOUSAND) SUBCUT SCH ×4 (04:26→22:08)
[2016-12-03] MEDS: Nicotine GUM* 2 MG PO PRN (10:31)
[2016-12-03] MEDS: Donepezil TAB* 5 MG PO SCH (10:32)
[2016-12-03] MEDS: Sertraline* 100 MG TAB PO SCH (10:32)
[2016-12-03] MEDS: Metoprolol Succinate XL TAB* 25 MG PO SCH ×2 (10:32→10:39)
[2016-12-03] MEDS: metroNIDAZOLE TAB* 250 MG PO SCH ×2 (10:32→20:02)
[2016-12-03] MEDS: Aspirin Low Dose CHEW TAB* 81 MG PO SCH (10:32)
[2016-12-03] MEDS: Dapsone TAB* 100 MG PO SCH (12:24)
[2016-12-03] MEDS ORDERED: Mouth Piece, Nicotine* 1 EACH CARTRIDGE INH PRN (15:51)
--- NOTE | 2016-12-03 15:57 | PN ---
Subjective Date of Service: 12/03/16 Interval History: Patient seen today. A bit more agitated today. Perseverating on bacterial and infections, showing me the scabs he pulled off today, also suggesting we take all of the plastic out of the hospital and specifically on the border of the mata so that we could install new nishant that would not allow bacteria inside. A bit confrontational at times, standing up very close to me. Family History: Unchanged from Admission Social History: Unchanged from Admission Past Medical History: Unchanged from Admission Objective Active Medications: Acetaminophen (Tylenol Tab*) 650 mg PO Q4H PRN Aspirin (Aspirin Low Dose Tab*) 81 mg PO DAILY [facility] Dapsone (Dapsone Tab*) 100 mg PO DAILY [facility] Donepezil HCl (Aricept Tab*) 10 mg PO DAILY [facility] Haloperidol (Haldol Tab*) 2.5 mg PO BID PRN Haloperidol Lactate (Haldol Inj Iv/Im*) 5 mg IM Q4H PRN Heparin Sodium (Porcine) (Heparin Vial(*)) 5,000 units SUBCUT Q8HR [facility] Ibuprofen (Advil Tab*) 200 mg PO TID PRN Metoprolol Succinate (Toprol Xl Tab*) 12.5 mg PO DAILY [facility] Metronidazole (Flagyl Tab*) 500 mg PO BID [facility] Nicotine Polacrilex (Nicotine Gum*) 2 mg PO Q2H PRN Ondansetron HCl (Zofran Inj*) 4 mg IV Q6H PRN Quetiapine Fumarate (Seroquel Tab*) 50 mg PO BEDTIME [facility] Sertraline HCl (Zoloft*) 100 mg PO DAILY [facility] Vital Signs 12/02/16 12/02/16 12/02/16 15:57 16:00 19:17 Temperature 98.1 F 98.1 F 98.1 F Pulse Rate 51 51 67 Respiratory 16 16 16 Rate Blood Pressure 141/53 141/53 132/56 (mmHg) O2 Sat by Pulse 98 98 96 Oximetry 12/02/16 12/03/16 12/03/16 20:30 10:40 10:42 Temperature Pulse Rate 43 Respiratory 20 16 Rate Blood Pressure 130/61 (mmHg) O2 Sat by Pulse 100 Oximetry 12/03/16 13:49 Temperature Pulse Rate Respiratory Rate Blood Pressure 105/66 (mmHg) O2 Sat by Pulse Oximetry Oxygen Devices in Use Now: None Appearance: Elderly, frail, M, laying in bed in NAD Eyes: No Scleral Icterus Ears/Nose/Mouth/Throat: Mucous Membranes Moist Neck: NL Appearance and Movements; NL JVP Respiratory: Symmetrical Chest Expansion and Respiratory Effort, Clear to Auscultation Cardiovascular: NL Sounds; No Murmurs; No JVD, RRR Abdominal: NL Sounds; No Tenderness; No Distention Lymphatic: No Cervical Adenopathy Extremities: No Edema Skin: - - Numerous excoriated areas/scabs, mostly on UEs Neurological: - - Alert, oriented, agitated Result Diagrams: 11/30/16 04:37 11/29/16 04:34 Assess/Plan/Problems-Billing Assessment: Disorganized thoughts, irrational behavior, LE wound with possible cellulitis and troponin elevation in a 76 yo M with hx of bladder cancer, dementia, depression/anxiety - Patient Problems (1) Disorganized behavior Current Visit: Yes Comment: Appreciate Psych assistance. May be a bit worse today, may restart standing haldol, will discuss with Dr. Mcguire. Continue QHS seroquel (2) Wound of lower extremity Current Visit: Yes Comment: Seems like venous stasis ulcer. Maybe had some surrounding cellulitis which resolved, will stop Keflex. Wound care. (3) Elevated troponin Current Visit: Yes Comment: Unclear etiology. Echo shows normal EF, ?relative hypokinesis of the inferior wall. Troponins trended down from admission, no complaints of chest pain. Will hold off on additional work-up at this time as I feel the patient would not be reliable in taking medications if he needed PCI. Will continue for now with ASA 81 mg daily. With recurrent bradycardia will stop Metoprolol. (4) Depression Current Visit: Yes Comment: Continue Zoloft. Continue Aricept. As per son, not clear if patient was definitively diagnosed with dementia but may have just been suspected. Performed well (27/) on MMSE here in the hospital. (5) Hidradenitis suppurativa Current Visit: Yes Comment: Continue home Flagyl and Dapsone. (6) DVT prophylaxis Current Visit: Yes Comment: HSQ Status and Disposition: CM discussed with son and it seems the patient moving in with him is not realistic, awaiting placement
--- NOTE | 2016-12-03 16:40 | CONSULT ---
Identification - Patient Identification Reason for Psychiatric Consultation: Incapacitating Symptoms -: Patient is a 76 year old, M admitted on 11/28/16. - MHU Identification Employment Status: Disabled Hx Psychiatric Hospitalization: No History - Objective HPI: Fernando is seen today in his room, where I find him naked in his bathroom, cleaning himself in front of the mirror. He presents as cooperative, but irritable. I ask where he is likely to go after discharge, to which he responds "Anyplace other than this flea hole!" He is profane and somewhat pressured but denies SI or HI. He is better oriented than our last interaction and has improved attention, recall. Lab Results: Laboratory Tests 11/28/16 11/28/16 11/28/16 20:52 20:52 23:35 WBC RBC Hgb Hct MCV MCH MCHC RDW Plt Count MPV Neut % (Auto) Lymph % (Auto) Wheeler % (Auto) Eos % (Auto) Baso % (Auto) Absolute Neuts (auto) Absolute Lymphs (auto) Absolute Monos (auto) Absolute Eos (auto) Absolute Basos (auto) Absolute Nucleated RBC Nucleated RBC % Carbon Monoxide Screen <3.5 Sodium Potassium Chloride Carbon Dioxide Anion Gap BUN Creatinine Est GFR ( Amer) Est GFR (Non-Af Amer) BUN/Creatinine Ratio Glucose Calcium Troponin I 0.37 H* 0.31 H* Vitamin B12 Folate Syphilis IgG Antibody 11/29/16 11/29/16 11/30/16 04:34 04:34 04:37 WBC 8.7 8.7 RBC 3.60 L 3.56 L Hgb 11.4 L 11.4 L Hct 35 L 35 L MCV 97 H 97 H MCH 32 H 32 H MCHC 33 33 RDW 15 14 Plt Count 226 212 MPV 8 8 Neut % (Auto) 63.4 72.3 Lymph % (Auto) 25.2 17.8 L Wheeler % (Auto) 10.5 H 9.1 H Eos % (Auto) 0.5 0.3 Baso % (Auto) 0.4 0.5 Absolute Neuts (auto) 5.5 6.3 Absolute Lymphs (auto) 2.2 1.6 Absolute Monos (auto) 0.9 H 0.8 Absolute Eos (auto) 0 0 Absolute Basos (auto) 0 0 Absolute Nucleated RBC 0 0 Nucleated RBC % 0 0 Carbon Monoxide Screen Sodium 136 Potassium 4.1 Chloride 107 Carbon Dioxide 25 Anion Gap 4 BUN 24 Creatinine 0.76 Est GFR ( Amer) 128.6 Est GFR (Non-Af Amer) 100.0 BUN/Creatinine Ratio 31.6 H Glucose 78 Calcium 8.6 Troponin I Vitamin B12 Folate Syphilis IgG Antibody 11/30/16 11/30/16 04:37 04:37 WBC RBC Hgb Hct MCV MCH MCHC RDW Plt Count MPV Neut % (Auto) Lymph % (Auto) Wheeler % (Auto) Eos % (Auto) Baso % (Auto) Absolute Neuts (auto) Absolute Lymphs (auto) Absolute Monos (auto) Absolute Eos (auto) Absolute Basos (auto) Absolute Nucleated RBC Nucleated RBC % Carbon Monoxide Screen Sodium Potassium Chloride Carbon Dioxide Anion Gap BUN Creatinine Est GFR ( Amer) Est GFR (Non-Af Amer) BUN/Creatinine Ratio Glucose Calcium Troponin I Vitamin B12 272 Folate 10.63 Syphilis IgG Antibody Nonreactive Exam Appearance: Thin Framed Hygiene: Normal Grooming: Fairly Well Kept Psychomotor Activities: Normal Exhibits Abnormal Movement: No Attitude and Relatedness: Irritable Eye Contact: Fair - Speech Quality: Pressured Latencies: Normal Quantity: Appropriate Patient's Decription of Mood: "Terrible" Observed Affect: Tense Affect Consistent with: Euthymia Patient's Thought Process: Circumstantial Thought Content: No Passive Wish, No Suicidal Planning, No Homicidal Ideation, No Paranoid Ideation Experiencing Hallucinations: No, Sensorium is Clear Type of Hallucinations: Visual: No, Auditory: No, Command: No Level of Consciousness: Agitated Orientation: Yes Intact, Yes Orientated to Time, Yes Orientated to Place, Yes Orientated to Person Impulse Control: Poor Insight and Judgement: Impaired Impression - Impression Clinical Impression: 76 y.o. , white male with a fairly recent diagnosis of dementia admitted to medicine due to recent disorganized, unsafe behavior, homicidality towards his neighbor and elevated troponins. It is my opinion that he does not currently have the capacity to make informed medical decisions. Merits Inpatient Hospitalization: No Plan - Treatment Plan Treatment Plan: The patient lacks capacity to make informed medical decisions and primary team should continue to work with his family on discharge planning considerations. His acute delirium appears to be improving, although his irritability has been increasing since admission. Will increase quetiapine to 100mg PO qhs. Psychiatry will continue to follow. Continued Medication Management: Start Medication Medications: Current Medications Acetaminophen (Tylenol Tab*) 650 mg PO Q4H PRN PRN Reason: FEVER/PAIN Aspirin (Aspirin Low Dose Tab*) 81 mg PO DAILY [facility] Last Admin: 12/03/16 10:32 Dose: 81 mg Dapsone (Dapsone Tab*) 100 mg PO DAILY [facility] Last Admin: 12/03/16 12:24 Dose: 100 mg Device (Nicotine Mouth Piece*) 1 each INH .USE WITH NICOTROL PRN PRN Reason: CRAVING Donepezil HCl (Aricept Tab*) 10 mg PO DAILY [facility] Last Admin: 12/03/16 10:32 Dose: 10 mg Haloperidol (Haldol Tab*) 2.5 mg PO BID PRN PRN Reason: AGITATION Haloperidol Lactate (Haldol Inj Iv/Im*) 5 mg IM Q4H PRN PRN Reason: AGITATION Last Admin: 11/29/16 16:40 Dose: 5 mg Heparin Sodium (Porcine) (Heparin Vial(*)) 5,000 units SUBCUT Q8HR [facility] Last Admin: 12/03/16 14:12 Dose: Not Given Ibuprofen (Advil Tab*) 200 mg PO TID PRN PRN Reason: FEVER/PAIN Last Admin: 12/03/16 04:26 Dose: 200 mg Metoprolol Succinate (Toprol Xl Tab*) 12.5 mg PO DAILY [facility] Last Admin: 12/03/16 10:39 Dose: Not Given Metronidazole (Flagyl Tab*) 500 mg PO BID [facility] Last Admin: 12/03/16 10:32 Dose: 500 mg Nicotine (Nicotine Inhaler*) 10 mg INH Q2H PRN PRN Reason: CRAVING Nicotine Polacrilex (Nicotine Gum*) 2 mg PO Q2H PRN PRN Reason: CRAVING Last Admin: 12/03/16 10:31 Dose: 2 mg Ondansetron HCl (Zofran Inj*) 4 mg IV Q6H PRN PRN Reason: NAUSEA Quetiapine Fumarate (Seroquel Tab*) 100 mg PO BEDTIME [facility] Sertraline HCl (Zoloft*) 100 mg PO DAILY [facility] Last Admin: 12/03/16 10:32 Dose: 100 mg - Discharge Plan Discharge Plan: Outpatient Follow Up
[2016-12-03] MEDS: Nicotine Inhaler* 10 MG AMP INH PRN ×2 (17:07→20:06)
[2016-12-03] MEDS: QUEtiapine TAB* 100 MG PO SCH (20:02)
[2016-12-04] MEDS: Ibuprofen TAB* 200 MG PO PRN (05:16)
[2016-12-04] MEDS: Heparin VIAL(*) 5000 UNITS/ML VIAL (FIVE THOUSAND) SUBCUT SCH ×3 (05:33→20:34)
[2016-12-04] MEDS: Sertraline* 100 MG TAB PO SCH (08:12)
[2016-12-04] MEDS: metroNIDAZOLE TAB* 250 MG PO SCH ×2 (08:12→20:32)
[2016-12-04] MEDS: Donepezil TAB* 5 MG PO SCH (08:12)
[2016-12-04] MEDS: Aspirin Low Dose CHEW TAB* 81 MG PO SCH (08:13)
[2016-12-04] MEDS: Dapsone TAB* 100 MG PO SCH (08:13)
[2016-12-04] MEDS: Nicotine Inhaler* 10 MG AMP INH PRN ×2 (08:17→20:32)
[2016-12-04] MEDS: Metoprolol Succinate XL TAB* 25 MG PO SCH (08:20)
--- NOTE | 2016-12-04 13:57 | CONSULT ---
Identification - Patient Identification Reason for Psychiatric Consultation: Incapacitating Symptoms -: Patient is a 76 year old, M admitted on 11/28/16. - MHU Identification Employment Status: Disabled Hx Psychiatric Hospitalization: No History - Objective HPI: Fernando presents as irritable and hyperverbal. Makes several complaints about his outpatient family practitioner, Dr. Garnica, and claims to be suing him for medical malpractice. The patient wants me to call a local [employer] or [employer] to advocate for him to get out of the hospital and go home. He is requesting clonazepam but is willing to agree to a trial of quetiapine. Patient denies SI or HI. Lab Results: Laboratory Tests 11/28/16 11/28/16 11/28/16 20:52 20:52 23:35 WBC RBC Hgb Hct MCV MCH MCHC RDW Plt Count MPV Neut % (Auto) Lymph % (Auto) [place] % (Auto) Eos % (Auto) Baso % (Auto) Absolute Neuts (auto) Absolute Lymphs (auto) Absolute Monos (auto) Absolute Eos (auto) Absolute Basos (auto) Absolute Nucleated RBC Nucleated RBC % Carbon Monoxide Screen <3.5 Sodium Potassium Chloride Carbon Dioxide Anion Gap BUN Creatinine Est GFR ( Amer) Est GFR (Non-Af Amer) BUN/Creatinine Ratio Glucose Calcium Troponin I 0.37 H* 0.31 H* Vitamin B12 Folate Syphilis IgG Antibody 11/29/16 11/29/16 11/30/16 04:34 04:34 04:37 WBC 8.7 8.7 RBC 3.60 L 3.56 L Hgb 11.4 L 11.4 L Hct 35 L 35 L MCV 97 H 97 H MCH 32 H 32 H MCHC 33 33 RDW 15 14 Plt Count 226 212 MPV 8 8 Neut % (Auto) 63.4 72.3 Lymph % (Auto) 25.2 17.8 L [place] % (Auto) 10.5 H 9.1 H Eos % (Auto) 0.5 0.3 Baso % (Auto) 0.4 0.5 Absolute Neuts (auto) 5.5 6.3 Absolute Lymphs (auto) 2.2 1.6 Absolute Monos (auto) 0.9 H 0.8 Absolute Eos (auto) 0 0 Absolute Basos (auto) 0 0 Absolute Nucleated RBC 0 0 Nucleated RBC % 0 0 Carbon Monoxide Screen Sodium 136 Potassium 4.1 Chloride 107 Carbon Dioxide 25 Anion Gap 4 BUN 24 Creatinine 0.76 Est GFR ( Amer) 128.6 Est GFR (Non-Af Amer) 100.0 BUN/Creatinine Ratio 31.6 H Glucose 78 Calcium 8.6 Troponin I Vitamin B12 Folate Syphilis IgG Antibody 11/30/16 11/30/16 04:37 04:37 WBC RBC Hgb Hct MCV MCH MCHC RDW Plt Count MPV Neut % (Auto) Lymph % (Auto) [place] % (Auto) Eos % (Auto) Baso % (Auto) Absolute Neuts (auto) Absolute Lymphs (auto) Absolute Monos (auto) Absolute Eos (auto) Absolute Basos (auto) Absolute Nucleated RBC Nucleated RBC % Carbon Monoxide Screen Sodium Potassium Chloride Carbon Dioxide Anion Gap BUN Creatinine Est GFR ( Amer) Est GFR (Non-Af Amer) BUN/Creatinine Ratio Glucose Calcium Troponin I Vitamin B12 272 Folate 10.63 Syphilis IgG Antibody Nonreactive Exam Appearance: Thin Framed Hygiene: Normal Grooming: Fairly Well Kept Psychomotor Activities: Normal Exhibits Abnormal Movement: No Attitude and Relatedness: Irritable Eye Contact: Fair - Speech Quality: Pressured Latencies: Normal Quantity: Appropriate Patient's Decription of Mood: "Terrible" Observed Affect: Tense Affect Consistent with: Euthymia Patient's Thought Process: Circumstantial Thought Content: No Passive Wish, No Suicidal Planning, No Homicidal Ideation, No Paranoid Ideation Experiencing Hallucinations: No, Sensorium is Clear Type of Hallucinations: Visual: No, Auditory: No, Command: No Level of Consciousness: Agitated Orientation: Yes Intact, Yes Orientated to Time, Yes Orientated to Place, Yes Orientated to Person Impulse Control: Poor Insight and Judgement: Impaired Impression - Impression Clinical Impression: 76 y.o. , white male with a fairly recent diagnosis of dementia admitted to medicine due to recent disorganized, unsafe behavior, homicidality towards his neighbor and elevated troponins. He is no longer homicidal but is irritable and anxious with poor insight into his condition. He lacks capacity to make informed medical decisions and would benefit from SNF placement. Merits Inpatient Hospitalization: No Plan - Treatment Plan Treatment Plan: The patient lacks capacity to make informed medical decisions and primary team should continue to work with his family on discharge planning considerations. His acute delirium appears to be improving, although his irritability has been increasing since admission. Will increase quetiapine to 50mg PO qam and 100mg PO qhs. Psychiatry will continue to follow. Continued Medication Management: Start Medication Medications: Current Medications Acetaminophen (Tylenol Tab*) 650 mg PO Q4H PRN PRN Reason: FEVER/PAIN Aspirin (Aspirin Low Dose Tab*) 81 mg PO DAILY [facility] Last Admin: 12/04/16 08:13 Dose: 81 mg Dapsone (Dapsone Tab*) 100 mg PO DAILY [facility] Last Admin: 12/04/16 08:13 Dose: 100 mg Device (Nicotine Mouth Piece*) 1 each INH .USE WITH NICOTROL PRN PRN Reason: CRAVING Last Admin: 12/03/16 17:08 Dose: 1 each Donepezil HCl (Aricept Tab*) 10 mg PO DAILY [facility] Last Admin: 12/04/16 08:12 Dose: 10 mg Haloperidol (Haldol Tab*) 2.5 mg PO BID PRN PRN Reason: AGITATION Haloperidol Lactate (Haldol Inj Iv/Im*) 5 mg IM Q4H PRN PRN Reason: AGITATION Last Admin: 11/29/16 16:40 Dose: 5 mg Heparin Sodium (Porcine) (Heparin Vial(*)) 5,000 units SUBCUT Q8HR [facility] Last Admin: 12/04/16 12:07 Dose: Not Given Ibuprofen (Advil Tab*) 200 mg PO TID PRN PRN Reason: FEVER/PAIN Last Admin: 12/04/16 05:16 Dose: 200 mg Metoprolol Succinate (Toprol Xl Tab*) 12.5 mg PO DAILY [facility] Last Admin: 12/04/16 08:20 Dose: 12.5 mg Metronidazole (Flagyl Tab*) 500 mg PO BID [facility] Last Admin: 12/04/16 08:12 Dose: 500 mg Nicotine (Nicotine Inhaler*) 10 mg INH Q2H PRN PRN Reason: CRAVING Last Admin: 12/04/16 08:17 Dose: 10 mg Nicotine Polacrilex (Nicotine Gum*) 2 mg PO Q2H PRN PRN Reason: CRAVING Last Admin: 12/03/16 10:31 Dose: 2 mg Ondansetron HCl (Zofran Inj*) 4 mg IV Q6H PRN PRN Reason: NAUSEA Quetiapine Fumarate (Seroquel Tab*) 100 mg PO BEDTIME [facility] Last Admin: 12/03/16 20:02 Dose: 100 mg Quetiapine Fumarate (Seroquel Tab*) 50 mg PO DAILY [facility] Sertraline HCl (Zoloft*) 100 mg PO DAILY [facility] Last Admin: 12/04/16 08:12 Dose: 100 mg - Discharge Plan Discharge Plan: Outpatient Follow Up
[2016-12-04] MEDS: QUEtiapine TAB* 25 MG PO SCH (14:13)
--- NOTE | 2016-12-04 19:02 | PN ---
Subjective Date of Service: 12/04/16 Interval History: . Interviewed and examined patient at bedside; Discussed case with Dr. Escoto ; Reviewed previous notes and radiology results; Patient refuses to allow care of wound. He is continually wiping it. Denies complaints. Reviewed psych consult notes; guidance appreciated; patient is getting and taking his meds. Family History: Unchanged from Admission Social History: Unchanged from Admission Past Medical History: Unchanged from Admission Objective Active Medications: . Acetaminophen (Tylenol Tab*) 650 mg PO Q4H PRN PRN Reason: FEVER/PAIN Aspirin (Aspirin Low Dose Tab*) 81 mg PO DAILY [facility] Last Admin: 12/04/16 08:13 Dose: 81 mg Dapsone (Dapsone Tab*) 100 mg PO DAILY [facility] Last Admin: 12/04/16 08:13 Dose: 100 mg Device (Nicotine Mouth Piece*) 1 each INH .USE WITH NICOTROL PRN PRN Reason: CRAVING Last Admin: 12/03/16 17:08 Dose: 1 each Donepezil HCl (Aricept Tab*) 10 mg PO DAILY [facility] Last Admin: 12/04/16 08:12 Dose: 10 mg Haloperidol (Haldol Tab*) 2.5 mg PO BID PRN PRN Reason: AGITATION Haloperidol Lactate (Haldol Inj Iv/Im*) 5 mg IM Q4H PRN PRN Reason: AGITATION Last Admin: 11/29/16 16:40 Dose: 5 mg Heparin Sodium (Porcine) (Heparin Vial(*)) 5,000 units SUBCUT Q8HR [facility] Last Admin: 12/04/16 12:07 Dose: Not Given Ibuprofen (Advil Tab*) 200 mg PO TID PRN PRN Reason: FEVER/PAIN Last Admin: 12/04/16 05:16 Dose: 200 mg Metoprolol Succinate (Toprol Xl Tab*) 12.5 mg PO DAILY [facility] Last Admin: 12/04/16 08:20 Dose: 12.5 mg Metronidazole (Flagyl Tab*) 500 mg PO BID [facility] Last Admin: 12/04/16 08:12 Dose: 500 mg Nicotine (Nicotine Inhaler*) 10 mg INH Q2H PRN PRN Reason: CRAVING Last Admin: 12/04/16 08:17 Dose: 10 mg Nicotine Polacrilex (Nicotine Gum*) 2 mg PO Q2H PRN PRN Reason: CRAVING Last Admin: 12/03/16 10:31 Dose: 2 mg Ondansetron HCl (Zofran Inj*) 4 mg IV Q6H PRN PRN Reason: NAUSEA Quetiapine Fumarate (Seroquel Tab*) 100 mg PO BEDTIME [facility] Last Admin: 12/03/16 20:02 Dose: 100 mg Quetiapine Fumarate (Seroquel Tab*) 50 mg PO DAILY [facility] Last Admin: 12/04/16 14:13 Dose: 50 mg Sertraline HCl (Zoloft*) 100 mg PO DAILY [facility] Last Admin: 12/04/16 08:12 Dose: 100 mg . Vital Signs 12/03/16 12/03/16 12/03/16 19:38 20:00 23:29 Temperature 98.5 F Pulse Rate 68 81 Respiratory 19 20 16 Rate Blood Pressure 146/65 129/45 (mmHg) O2 Sat by Pulse 98 96 Oximetry 12/04/16 12/04/16 12/04/16 04:44 07:49 08:00 Temperature 97.9 F 97.7 F Pulse Rate 67 58 Respiratory 16 18 18 Rate Blood Pressure 129/48 129/49 (mmHg) O2 Sat by Pulse 96 98 Oximetry Oxygen Devices in Use Now: None Appearance: NAD Ears/Nose/Mouth/Throat: Clear Oropharnyx Neck: NL Appearance and Movements; NL JVP Respiratory: Symmetrical Chest Expansion and Respiratory Effort Cardiovascular: NL Sounds; No Murmurs; No JVD Lymphatic: No Cervical Adenopathy Extremities: - - + left anterior lindsey wound - self-dressed Skin: No Nodules or Sclerosis Neurological: Alert and Oriented x 3, - - + hyperverbal and not demonstrating capacity. Lines/Tubes/Other Access: Clean, Dry and Intact Peripheral IV Nutrition: Taking PO's Result Diagrams: 11/30/16 04:37 11/29/16 04:34 Microbiology and Other Data: Microbiology 11/29/16 00:51 Nasal Screen MRSA (PCR)(NERIS) - Final Nasal Mrsa Negative Assess/Plan/Problems-Billing . Assessment: Disorganized thoughts, irrational behavior, LE wound with possible cellulitis and troponin elevation in a 76 yo M with hx of bladder cancer, dementia, depression/anxiety - Patient Problems (1) Depression Status: Acute Priority: High Code(s): F32.9 - MAJOR DEPRESSIVE DISORDER, SINGLE EPISODE, UNSPECIFIED Comment: - Continue Zoloft. - Continue Aricept. - Per son, not clear if patient was definitively diagnosed w/ dementia but may just be suspected. - Performed well () on MMSE in the hospital. (2) Disorganized behavior Status: Acute Priority: High Code(s): R46.89 - OTHER SYMPTOMS AND SIGNS INVOLVING APPEARANCE AND BEHAVIOR Comment: - Appreciate Psych assistance. - Continue QHS seroquel (3) Elevated troponin Status: Acute Priority: High Code(s): R74.8 - ABNORMAL LEVELS OF OTHER SERUM ENZYMES Comment: - Unclear etiology. - Echo shows normal EF, ?relative hypokinesis of the inferior wall. - Troponins trended down from admission, no complaints of chest pain. - Will hold off on additional work-up at this time as I feel the patient would not be reliable in taking medications if he needed PCI. - Will continue for now with ASA 81 mg daily. -With recurrent bradycardia ; stopped Metoprolol. (4) Hidradenitis suppurativa Status: Acute Priority: High Code(s): L73.2 - HIDRADENITIS SUPPURATIVA Comment: Continue home Flagyl and Dapsone. (5) Wound of lower extremity Status: Acute Code(s): S81.809A - UNSPECIFIED OPEN WOUND, UNSPECIFIED LOWER LEG, INIT ENCNTR Comment: Seems like venous stasis ulcer. Maybe had some surrounding cellulitis which resolved, will stop Keflex. Wound care. (6) DVT prophylaxis Status: Acute Priority: High Code(s): NFP3325 - Comment: HSQ Status and Disposition: CM discussed with son and it seems the patient moving in with him is not realistic, awaiting placement
[2016-12-04] MEDS: QUEtiapine TAB* 100 MG PO SCH (20:32)
[2016-12-05] MEDS: Heparin VIAL(*) 5000 UNITS/ML VIAL (FIVE THOUSAND) SUBCUT SCH ×2 (05:31→14:05)
[2016-12-05 08:54] VITALS: BP 162/62
[2016-12-05] MEDS: metroNIDAZOLE TAB* 250 MG PO SCH (08:54)
[2016-12-05] MEDS: Metoprolol Succinate XL TAB* 25 MG PO SCH (08:55)
[2016-12-05] MEDS: Dapsone TAB* 100 MG PO SCH (08:55)
[2016-12-05] MEDS: Donepezil TAB* 5 MG PO SCH (08:55)
[2016-12-05] MEDS: Aspirin Low Dose CHEW TAB* 81 MG PO SCH (08:55)
[2016-12-05] MEDS: Sertraline* 100 MG TAB PO SCH (08:55)
[2016-12-05] MEDS: QUEtiapine TAB* 25 MG PO SCH (08:55)
[2016-12-05] MEDS: Nicotine Inhaler* 10 MG AMP INH PRN (08:57)
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
--- NOTE | 2016-12-09 09:46 | PN ---
Hospitalist Progress Note . HOSPITALIST DISCHARGE NOTE: See dc instructions and summary by me. Patient stable for dc dc instructions reviewed with the patient at the bedside. DC patient to [facility] [place] today.
== END 2016-12-05 17:00 | disposition home or self-care (01) | DRG 884 ==
LOC: ED 16:26 → INTOOBSV 19:37 → OBSVTOIN 19:37 → UNDOADMIN 19:37 → MEDTELE 19:37 → MED 12-02 16:10 → MEDTELE 12-02 16:10 → UNDODISIN 12-05 17:00
PROVIDERS: ADMIT Internal Medicine; ATTEND Internal Medicine
DX: F03.90 Unspecified dementia, unspecified severity, without behavioral disturbance, psychotic disturbance, mood disturbance, and anxiety (principal); L03.115 Cellulitis of right lower limb; R00.1 Bradycardia, unspecified; R60.0 Localized edema; F41.9 Anxiety disorder, unspecified; F17.210 Nicotine dependence, cigarettes, uncomplicated; F32.9 Major depressive disorder, single episode, unspecified; R41.0 Disorientation, unspecified; Z66 Do not resuscitate; L73.2 Hidradenitis suppurativa; I45.10 Unspecified right bundle-branch block; R79.89 Other specified abnormal findings of blood chemistry; S80.921A Unspecified superficial injury of right lower leg, initial encounter; Z85.51 Personal history of malignant neoplasm of bladder; Z80.9 Family history of malignant neoplasm, unspecified; Z81.1 Family history of alcohol abuse and dependence; R45.1 Restlessness and agitation
CPT/HCPCS: 36415; 70450; 71275; 80048; 80053; 80307; 80320; 80329; 81003; 81015; 82140; 82375; 82550; 82553; 82607; 82746; 83605; 83690; 83735; 83880; 84145; 84443; 84484; 85025; 85379; 85610; 85652; 85730; 86140; 86592; 87641; 93005; 93306; 99406; A9270-GY; G0480; J0690; J1630; J1644; J2060; Q9967